=== PATIENT | female | born 1980 ===

== ENCOUNTER 2017-10-17 06:29 | Day surgery (SDC) | payer OTHER ==
--- NOTE | 2017-10-17 06:31 | PCM.PREANE ---
Preanesthetic Assessment - Anesthesia/Transfusion/Family Hx Anesthesia History: Prior Anesthesia Without Reaction Family History of Anesthesia Reaction: No Transfusion History: No Prior Transfusion(s) Intubation History: Unknown - Review of Systems General: No Symptoms Pulmonary: No Symptoms Cardiovascular: No Symptoms (History of HTN in 2012), Palpitations (associated with thyroid disease prior to treatment.) Gastrointestinal: No Symptoms Neurological: No Symptoms Other: Reports: Liver Problems (History of steatohepatitis, non alcoholic in 2013 (due to control pill per patient)), Thyroid Problems (hypothyroidism) - Physical Assessment NPO Status Date: 10/16/17 NPO Status Time: 19:00 Pulse: 77 O2 Sat by Pulse Oximetry: 98 Respiratory Rate: 16 Blood Pressure: 163/94 Temperature: 37.2 C Height: 1.63 m Weight: 91 kg ASA Class: 2 Mental Status: Alert & Oriented x3 Airway Class: Mallampati = 2 Dentition: Reports: Normal Dentition, Caries Thyro-Mental Finger Breadths: 3 Mouth Opening Finger Breadths: 3 ROM/Head Extension: Full Lungs: Clear to Auscultation, Normal Respiratory Effort, Other Cardiovascular: Regular Rate, Regular Rhythm, No Murmurs - Lab Values: All lab values reviewed and noted and within acceptable ranges to proceed with scheduled procedure. - Allergies Allergies/Adverse Reactions: Allergies Allergy/AdvReac Type Severity Reaction Status Date / Time tramadol Allergy Cannot Verified 10/12/17 08:53 Remember - Anesthesia Plan Pre-Op Medication Ordered: None - Acknowledgements Anesthesia Type Planned: General Anesthesia Pt an Appropriate Candidate for the Planned Anesthesia: Yes Alternatives and Risks of Anesthesia Discussed w Pt/Guardian: Yes Pt/Guardian Understands and Agrees with Anesthesia Plan: Yes PreAnesthesia Questionnaire HEENT History: Reports: Impaired Vision Cardiovascular History: Reports: Hypertension, Other (See Below) Other Cardiovascular History: palpitations Respiratory History: Reports: None Gastrointestinal History: Reports: Other (See Below) Other Gastrointestinal History: non-alcholoic steatohepatitis, liver biospy Genitourinary History: Reports: None [employer]ING [employer]ICER History: Reports: , Other (See Below) Other OB/BYN History: dysmenorrhea, irregular menses, menorrhagia Musculoskeletal History: Reports: None Neurological History: Reports: None Psychiatric History: Reports: None Endocrine/Metabolic History: Reports: Hypothyroidism Hematologic History: Reports: None Immunologic History: Reports: None Oncologic (Cancer) History: Reports: None Dermatologic History: Reports: Other (See Below) Other Dermatologic History: multiple lipomas with excision - Past Surgical History Head Surgeries/Procedures: Reports: None HEENT Surgical History: Reports: Tonsillectomy Cardiovascular Surgical History: Reports: None Respiratory Surgical History: Reports: None GI Surgical History: Reports: Cholecystectomy Female Surgical History: Reports: Section Endocrine Surgical History: Reports: None Neurological Surgical History: Reports: None Musculoskeletal Surgical History: Reports: None Oncologic Surgical History: Reports: None - SUBSTANCE USE Smoking Status *Q: Never Smoker Days Per Week of Alcohol Use: 0 Number of Drinks Per Day: 0 Total Drinks Per Week: 0 Recreational Drug Use History: No - HOME MEDS Home Medications: Home Meds Cholecalciferol (Vitamin D3) [Vitamin D3] 5,000 unit PO DAILY 10/12/17 [History] Ibuprofen 600 mg PO Q8H PRN 10/12/17 [History] Levothyroxine [Levothyroxine] 125 mcg PO DAILY 10/12/17 [History] - CURRENT (IN HOUSE) MEDS Current Meds: Current Medications Lactated Ringer's (Ringers, Lactated) 1,000 mls @ 125 mls/hr IV ASDIRECTED MAY Stop: 10/17/17 18:00 Lidocaine/Sodium Bicarbonate (Buffered Lidocaine 1% In Ns 8.4%) 0.25 ml IV ONETIME PRN PRN Reason: Prior to IV Start Stop: 10/17/17 18:00 Sodium Chloride (Saline Flush) 10 ml FLUSH ASDIRECTED PRN PRN Reason: Keep Vein Open Stop: 10/17/17 18:00
[2017-10-17] MEDS ORDERED: Sodium Chloride 0.9% 10 ML Syringe FLUSH PRN (07:00)
[2017-10-17] MEDS ORDERED: Lactated Ringers 1,000 ML IV SCH (07:00)
[2017-10-17] MEDS ORDERED: Lidocaine 1%/Sod Bicarbonate in NS 8.4% 1 ML Syringe IV PRN (07:00)
[2017-10-17] MEDS ORDERED: Ketorolac 30 MG/ML SDV ONE (07:02)
[2017-10-17] MEDS ORDERED: Lidocaine 1% 4 ML ONE (07:02)
[2017-10-17] MEDS ORDERED: Dexamethasone 4 MG/ML 5 ML MDV ONE (07:02)
[2017-10-17] MEDS ORDERED: Rocuronium 50 MG/5 ML Vial ONE (07:02)
[2017-10-17] MEDS ORDERED: Lactated Ringers 2,000 ML ONE (07:02)
[2017-10-17] MEDS ORDERED: Ondansetron 4 MG/2 ML SDV ONE (07:02)
[2017-10-17] MEDS ORDERED: ceFAZolin 1 GM Vial ONE (07:02)
[2017-10-17] MEDS ORDERED: Propofol 200 MG/20 ML SDV ONE (07:03)
[2017-10-17] MEDS ORDERED: Midazolam 1 MG/ML 2 ML SDV ONE (07:03)
[2017-10-17] MEDS ORDERED: HYDROmorphone 1 MG/ML Syringe ONE ×2 (07:03→08:24)
[2017-10-17] MEDS ORDERED: fentaNYL 250 MCG/5 ML SDV ONE (07:04)
[2017-10-17] MEDS ORDERED: Bupivacaine 0.5%/EPINEPHrine 1:200,000 50 ML MDV ONE (07:26)
[2017-10-17] MEDS ORDERED: Bupivacaine 0.5% 30 ML SDV ONE (07:27)
[2017-10-17] MEDS ORDERED: fentaNYL 100 MCG/2 ML SDV IVPUSH PRN (08:21)
[2017-10-17] MEDS ORDERED: Metoclopramide 10 MG/2 ML SDV IV PRN (08:21)
[2017-10-17] MEDS ORDERED: Ondansetron 4 MG/2 ML SDV IVPUSH PRN (08:21)
[2017-10-17] MEDS ORDERED: diphenhydrAMINE 50 MG/ML SDV IVPUSH PRN (08:21)
[2017-10-17] MEDS ORDERED: ePHEDrine 50 MG/ML SDV IVPUSH PRN (08:21)
[2017-10-17] MEDS ORDERED: HYDROmorphone 0.5 MG/0.5 ML Syringe IVPUSH PRN (08:21)
[2017-10-17] MEDS ORDERED: Midazolam 1 MG/ML 2 ML SDV IVPUSH PRN (08:21)
[2017-10-17] MEDS ORDERED: Phenylephrine/Normal Saline 100 MCG/ML 10 ML Syringe ONE (08:25)
[2017-10-17] MEDS ORDERED: Phenylephrine 1 MG in Sodium Chloride 0.9% 10 ML IV SCH (08:30)
[2017-10-17] MEDS: Lidocaine 1% with EPINEPHrine 1:100,000 20 ML MDV ONE ×2 (08:41→08:53)
[2017-10-17] MEDS ORDERED: Neostigmine Methylsulfate 1 MG/ML 5 ML Syringe ONE (09:03)
--- NOTE | 2017-10-17 09:55 | PCM.POSTAN ---
POST ANESTHESIA ASSESSMENT - MENTAL STATUS Mental Status: Alert - VITAL SIGNS Pulse Rate: 78 SaO2: 99 Resp Rate: 7 Blood Pressure: 126/65 Temperature: 36.2 C - RESPIRATORY Respiratory Status: Respiratory Rate WNL, Airway Patent, O2 Saturation Stable, Supplemental Oxygen - CARDIOVASCULAR CV Status: Pulse Rate WNL, Blood Pressure Stable - GASTROINTESTINAL GI Status: No Symptoms - POST OP HYDRATION Hydration Status: Adequate & Stable
--- NOTE | 2017-10-17 09:56 | PCM.OPNOTE ---
- General Post-Op/Procedure Note Date of Surgery/Procedure: 10/17/17 Operative Procedure(s): Laparoscopic assisted vaginal hysterectomy. Bilateral salpingectomy. Left ovarian cyst removal Findings: Normal appearance of the uterus and bilateral fallopian tubes. Left ovary with a pedunculated ovarian cyst, about 2-3 cm in size. Normal appearance of the right ovary. Pre Op Diagnosis: Abnormal uterine bleeding - failed medical management Post-Op Diagnosis: Same Anesthesia Technique: General ET Tube Primary Surgeon: Alondra Potts Secondary Surgeon: Cleveland Campbell Anesthesia Provider: Nola Broussard Reason Bus Analyst Was Necessary: Visualization, retraction, speed of procedure. BMI of 34. Pathology: Cervix, uterus, bilateral fallopian tubes and ovarian cyst sent to pathology for further evaluation Fluid Replacement, Intraop: 1,500 Output, Urine Amount: 250 EBL in mLs: 200 Complications: None Condition: Good Free Text/Narrative:: The risks, benefits, indications, potential complications, and alternatives were explained to the patient and informed consent obtained. The patient was taken to the Operating Room where general anesthesia was induced without complication. The patient was placed in dorsal lithotomy with Glenn Stirrups and an exam under anesthesia revealed the findings detailed above. The patient was then prepped and draped in the usual sterile fashion. A sterile speculum was placed into the vagina and the anterior lip of the cervix was grasped with a single tooth tenaculum and an uterine manipulator was placed to allow uterine manipulation throughout the procedure. The speculum and single tooth tenaculum were removed from the vagina. A Clifford catheter was placed in sterile fashion. Attention was then turned to the patients abdomen where a Veress needle was carefully introduced into the peritoneal cavity while tenting the abdominal wall. Intraperitoneal placement was confirmed by free flow of saline into the abdomen from a syringe open to gravity and with a low intraabdominal pressure with insufflation of C02 gas on low flow. The gas was increased to high flow and a pneumoperitoneum was obtained with C02 gas to a pressure of 15 mm Hg. A 5 mm skin incision was made in a vertical fashion in the umbilical fold and a 5 mm blunt trocar was inserted into the abdomen with direct visualization of the laparoscope through the clear view trocar lens. 5 mm skin incisions were made in both the left and right lower quadrants approximately 10 cm lateral and 3 cm inferior to the umbilicus. 5 mm blunt trocars were inserted into the abdomen under direct visualization with care to avoid the abdominal wall vasculature. A blunt probe and grasper were inserted through the accessory ports and a survey of the abdomen revealed the findings detailed above. The right fallopian tube was elevated with the blunt graspers at the fimbriated end. The Ligasure was used to grasp, elevate, cauterize and transect the mesosalpingx from the fimbriated end toward the uterus to the level of the round ligament. The round ligament on the right was then elevated, cauterized, and transected with the Ligasure. Hemostasis was noted. Next, the vesicouterine peritoneum was elevated gently with a blunt grasper and the ligasure along with blunt dissection was used dissect the vesicouterine peritoneum to make a bladder flap. Two more small bites along the right side of the uterus were made with the Ligasure to skeletonize the uterine artery. The uterine artery was cauterized, but not transected. The exact same procedure was carried out on the left. There was also a pedunculated cyst noted to be off the left ovary which was cauterized and transected. The cyst was placed in the posterior cul de sac for removal at a later time. Hemostasis as noted. The CO2 gas was turned off and the laparoscope was removed. Attention was then turned to the vaginal portion of the procedure. A short weighted speculum was placed in the vagina, and the cervix was grasped with two double-toothed tenaculums. The cervix was injected circumferentially with 10 mL of dilute epinephrine and 1% lidocaine. The cervix was then circumferentially incised with a scalpel. A Raytec was used to bluntly dissect the cervix circumferentially until an avascular plane was obtained. The posterior cul-de- sac was entered sharply without difficulty. A 0-Vicryl pop-off suture was placed at six o'clock to include the posterior vaginal mucosa and posterior peritoneum. This stitch was tagged with a straight clamp to help with vaginal cuff closure at the end of the case. The short weighted speculum was replaced by the long weighted speculum. The uterosacral ligaments were grasped on either side, cauterized, and transected with the Ligasure. The bladder was dissected off the pubovesical cervical fascia anteriorly with a sponge and blunt dissection. The anteiror cul-de-sac was then entered sharply without difficulty. The cardinal ligaments were then serially clamped on both sides, cauterized, and transected. The uterine arteries were then clamped, cauterized, and transected. Hemostasis was then noted. The fundus and adnexa were confirmed to be free of any further peritoneal attachments and then were pulled out through the vagina. The previously amputated ovarian cyst was also removed. The posterior periteneum was then closed to the posterior aspect of the vaginal cuff with a running, locked suture of 0 vicryl. The vaginal cuff was closed with a 0-Vicryl in a running locked fashion as well. Attention was then again turned to the abdomen. All members of the surgical team changed gloves. The laparoscope was again inserted and the abdomen was again insufflated with CO2. The pedicles were again visualized. Josue seal was placed along the vaginal cuff. Hemostasis was confirmed. The patient was taken out of Trendelenberg position. The accessory trocars were removed under direct visualization. The pneumoperitoneum was allowed to escape. The umbilical trocar was removed and lastly the camera was removed from the abdomen under direct visualization to confirm no herniation into the port site. All skin incisions were re-approximated with 4-0 Monocryl and sealed with Dermabond. Hemostasis was noted. A total of 10 cc of 0.25% Marcaine was injected into the subcutaneous tissues surrounding the skin incisions for local anesthesia. All sponge, lap, needle, and instrument counts were correct x 2. The patient tolerated the procedure well and there were no complications.
[2017-10-17] MEDS ORDERED: HYDROmorphone 0.5 MG/0.5 ML Syringe ONE (10:32)
[2017-10-17] MEDS ORDERED: diphenhydrAMINE 50 MG/ML SDV IM ONE (10:47)
--- NOTE | 2017-10-17 10:57 | PCM48HPAN ---
Post Anesthesia Note - EVALUATION WITHIN 48HRS OF ANESTHETIC Vital Signs in Normal Range: Yes Patient Participated in Evaluation: Yes Respiratory Function Stable: Yes Airway Patent: Yes Cardiovascular Function Stable: Yes Hydration Status Stable: Yes Pain Control Satisfactory: Yes Nausea and Vomiting Control Satisfactory: Yes Mental Status Recovered: Yes - COMMENTS/OBSERVATIONS Free Text/Narrative:: Patient c/o pruitis with an additional dose of benadryl given.
[2017-10-17] MEDS ORDERED: diphenhydrAMINE 50 MG/ML SDV IVPUSH ONE (11:00)
[2017-10-17] MEDS ORDERED: Acetaminophen/oxyCODONE 325-5 MG Tab PO ONE (11:18)
[2017-10-17 12:12] VITALS: BP 131/70
== END 2017-10-17 12:30 | disposition home or self-care (01) ==
LOC: JD.SDS 06:29
PROVIDERS: ATTEND Obstetrics & Gynecology
DX: D25.9 Leiomyoma of uterus, unspecified (principal); N80.1 Endometriosis of ovary; N83.202 Unspecified ovarian cyst, left side; N83.201 Unspecified ovarian cyst, right side; N83.8 Other noninflammatory disorders of ovary, fallopian tube and broad ligament; I10 Essential (primary) hypertension; E03.9 Hypothyroidism, unspecified; Z88.8 Allergy status to other drugs, medicaments and biological substances; Z79.899 Other long term (current) drug therapy
CPT/HCPCS: 36415; 58552; 58662; 80048; 81025; 85025; 86850; 86900; 86901; J0690; J1100; J1170; J1200; J1885; J2250; J2405; J2710; J3010; J7120; 00840; J2001; J2704